=== PATIENT | male | born 1960 | race Caucasian/White ===

== ENCOUNTER 2022-01-27 15:34 | Emergency (ER) | payer BC ==
[2022-01-27] MEDS ORDERED: EPINEPHrine 1:10,000 1 MG/10 ML Syringe IVPUSH ONE (15:40)
[2022-01-27] MEDS: EPINEPHrine 1:10,000 1 MG/10 ML Syringe IVPUSH PRN ×4 (15:40→15:51)
[2022-01-27] MEDS ORDERED: EPINEPHrine 1:10,000 1 MG/10 ML Syringe IVPUSH PRN (15:40)
[2022-01-27] MEDS ORDERED: 50% Dextrose in Water 50 ML Syringe IVPUSH ONE (15:44)
[2022-01-27] MEDS ORDERED: Sodium Chloride 0.9% 1,000 ML IV ONE (15:46)
[2022-01-27] MEDS ORDERED: Sodium Bicarbonate 8.4% 50 MEQ/50 ML Syringe IVPUSH ONE (15:49)
[2022-01-27] MEDS ORDERED: Naloxone 2 MG/2 ML Syringe IVPUSH ONE ×2 (15:52)
== END 2022-01-28 12:05 | disposition expired ==
LOC: CC.ED 15:46
DX: I46.9 Cardiac arrest, cause unspecified (principal)
CPT/HCPCS: 92950; 96374; 96375; 99285; 99285-25; J0171; J2310; J7030